=== PATIENT | female | born 1985 | race Caucasian/White ===

== ENCOUNTER 2021-03-19 10:30 | Emergency (ER) | payer MEDICAID ==
[~2021-03-19] VITALS: Ht 157.5 cm; Wt 123.8 kg
[2021-03-19] MEDS ORDERED: FLUOXETINE DR90 MG PO (10:40)
[2021-03-19] MEDS ORDERED: BUSPIRONE HCL10 MG PO (10:40)
[2021-03-19] MEDS ORDERED: SPIRONOLACTONE25 MG PO (10:40)
[2021-03-19] MEDS ORDERED: TOPROL XL25 MG PO (10:41)
[2021-03-19] MEDS ORDERED: PROTONIX 20 MG20 MG PO (10:41)
[2021-03-19] MEDS ORDERED: CRESTOR5 MG PO (10:41)
[2021-03-19] MEDS ORDERED: LEVO-T25 MCG PO (10:41)
[2021-03-19] MEDS ORDERED: AMITRIPTYLINE H10 M1 PO (10:41)
[2021-03-19] MEDS ORDERED: LEVSIN0.125 MG PO (10:42)
[2021-03-19] MEDS ORDERED: XYZAL5 MG PO (10:42)
[2021-03-19] MEDS ORDERED: APAP W/CODEINE1 TA2 PO (12:30)
[2021-03-19] MEDS ORDERED: IBUPROFEN 600600 M1 PO (12:32)
[2021-03-19 12:42] VITALS: BP 126/81
== END 2021-03-19 12:42 | disposition home or self-care (01) ==
LOC: M.ERS 10:30
DX: S82.402A Unspecified fracture of shaft of left fibula, initial encounter for closed fracture (principal); F41.9 Anxiety disorder, unspecified; F90.9 Attention-deficit hyperactivity disorder, unspecified type; F32.9 Major depressive disorder, single episode, unspecified; K21.9 Gastro-esophageal reflux disease without esophagitis; Z90.89 Acquired absence of other organs; Z79.899 Other long term (current) drug therapy; W10.8XXA Fall (on) (from) other stairs and steps, initial encounter; Y93.89 Activity, other specified; Y92.89 Other specified places as the place of occurrence of the external cause; Y99.8 Other external cause status